=== PATIENT | female | born 1970 | race Two or more races ===

== ENCOUNTER 2023-05-01 10:32 | Day surgery (SDC) | payer OTHER ==
[2023-05-01 08:58] VITALS: BMI 26.3
[2023-05-01] MEDS ORDERED: BUPIVACAINE HCL/PF 2.5 MG/ML - 30 ML VIAL IJ ONE (14:42)
[2023-05-01] MEDS ORDERED: ACETAMINOPHEN INJECTION 100 ML IVPB ONE (14:44)
[2023-05-01] MEDS ORDERED: MIDAZOLAM HCL 2 MG/2 ML SINGLE DOSE VIAL ONE (14:44)
[2023-05-01] MEDS ORDERED: KETOROLAC TROMETHAMINE 30 MG/1 ML VIAL ONE (14:44)
[2023-05-01] MEDS ORDERED: PROPOFOL 20 ML ONE (15:03)
[2023-05-01] MEDS ORDERED: ONDANSETRON 4 MG/2 ML VIAL ONE (15:11)
[2023-05-01] MEDS ORDERED: DEXAMETHASONE SOD PHOSPHATE 4 MG/1 ML VIAL ONE (15:11)
[2023-05-01] MEDS: BUPIVACAINE HCL/PF 0.25% (2.5MG/ML) 10 ML VIAL IJ ONE (15:36)
[2023-05-01] MEDS ORDERED: FENTANYL CITRATE/PF 50 MCG/ML VIAL ONE (15:53)
[2023-05-01] MEDS ORDERED: ACETAMINOPHEN 325 MG TABLET (FP) PO PRN (16:06)
[2023-05-01] MEDS ORDERED: ONDANSETRON 4 MG/2 ML VIAL IVPUSH PRN (16:06)
[2023-05-01] MEDS ORDERED: oxyCODONE HCL 5 MG TABLET PO PRN (16:06)
[2023-05-01] MEDS ORDERED: LACTATED RINGERS SOLUTION 1,000 ML IV SCH (16:15)
[2023-05-01 16:28] VITALS: RESP 20
[2023-05-01] MEDS ORDERED: oxyCODONE HCL 5 MG TABLET ONE (16:43)
[2023-05-01 17:33] VITALS: BP 122/78; PULSE 70; TEMP 97.6
== END 2023-05-01 17:20 | disposition home or self-care (01) ==
LOC: FASU 10:32
PROVIDERS: ATTEND Orthopaedic Surgery
PROC: 0SBD4ZZ Excision of Left Knee Joint, Percutaneous Endoscopic Approach (ICD-10-PCS; 2023-05-01)
PROC: 0SBD4ZZ Excision of Left Knee Joint, Percutaneous Endoscopic Approach (ICD-10-PCS; principal; 2023-05-01 15:22)
DX: S83.242A Other tear of medial meniscus, current injury, left knee, initial encounter (principal); S83.8X2A Sprain of other specified parts of left knee, initial encounter; M65.862 Other synovitis and tenosynovitis, left lower leg; X58.XXXA Exposure to other specified factors, initial encounter; Y93.9 Activity, unspecified; Y92.9 Unspecified place or not applicable
CPT/HCPCS: 94760; J0131